=== PATIENT | female | born 1990 | race Caucasian/White ===

== ENCOUNTER 2018-04-11 20:12 | Emergency (ER) | payer MEDICAID ==
[~2018-04-11] VITALS: Ht 162.6 cm; Wt 63.6 kg
[~2018-04-11 20:12] MED LIST: NITR100C6 PO
[2018-04-11] MEDS ORDERED: ketorolac trometh inj. 60 MG/2 ML VIAL IM ONE (20:20)
[2018-04-11 20:27] VITALS: BP 133/74
== END 2018-04-11 20:56 | disposition home or self-care (01) ==
LOC: ER 20:13
DX: O90.89 Other complications of the puerperium, not elsewhere classified (principal); R10.30 Lower abdominal pain, unspecified; J45.909 Unspecified asthma, uncomplicated; F11.90 Opioid use, unspecified, uncomplicated; Z79.899 Other long term (current) drug therapy; Z59.0 Homelessness
CPT/HCPCS: 96372; 99283; J1885

== ENCOUNTER 2018-06-25 19:37 | Emergency (ER) | payer MEDICAID ==
[~2018-06-25] VITALS: Ht 160 cm; Wt 68.5 kg
[2018-06-25 20:12] LABS: BASOPHILS % (AUTO) 0.7 % (0-1); EOSINOPHILS # (AUTO) 0.2 X10'3 (0-0.9); EOSINOPHILS % (AUTO) 3.3 % (0-6); HEMATOCRIT 37.6 % (35.0-45.0); HEMOGLOBIN 12.9 g/dl (12.0-16.0); LYMPHOCYTES # (AUTO) 3.2 X10'3 (1.1-4.8); LYMPHOCYTES % (AUTO) 48.7 % (21-51); MEAN CORPUSCULAR HEMOGLOBIN 30.7 PG (27.0-31.0); MEAN CORPUSCULAR HGB CONC 34.4 % (33.0-36.5); MEAN CORPUSCULAR VOLUME 89.3 FL (78-98); MEAN PLATELET VOLUME 6.7 FL (7.4-10.4); MONOCYTES # (AUTO) 0.6 X10'3 (0-0.9); MONOCYTES % (AUTO) 8.4 % (2-12); NEUTROPHILS # (AUTO) 2.6 X10'3 (1.8-7.7); NEUTROPHILS % (AUTO) 38.9 % (42-75); PLATELET COUNT 375 X10'3 (140-440); RED BLOOD COUNT 4.21 X10'6 (4.20-5.60); RED CELL DISTRIBUTION WIDTH 14.5 % (11.5-14.5); WHITE BLOOD COUNT 6.6 X10'3 (4.5-11.0)
[2018-06-25 20:18] LABS: URINE HCG NEGATIVE (NEG)
[2018-06-25 20:20] LABS: CLARITY,URINE SLIGHTLY CLOUDY (Clear); COLOR,URINE YELLOW (Yellow); GLUCOSE, URINE NEGATIVE (Neg); KETONES,URINE TRACE mg/dl (Neg); LEUKOCYTE ESTERASE ,URINE SMALL (Neg); NITRITES, URINE NEGATIVE (Neg); OCCULT BLOOD,URINE LARGE (Neg); PROTEIN,URINE NEGATIVE (Neg); UROBILINOGEN,URINE 0.2 E.U/dL (0.2-1.0)
[2018-06-25 20:24] LABS: ALANINE AMINOTRANSFERASE 115 U/L (12-78); ALBUMIN 3.7 G/DL (3.4-5.0); ALKALINE PHOSPHATASE 144 IU/L (46-116); ANION GAP 9 (8-16); ASPARTATE AMINO TRANSFERASE 60 U/L (10-37); BILIRUBIN,TOTAL 0.3 MG/DL (0.1-1.0); BLOOD UREA NITROGEN 14 MG/DL (7-18); BUN/CREATININE RATIO 19.4 (6.6-38.0); CALCIUM 8.7 MG/DL (8.5-10.1); CHLORIDE 103 MMOL/L (99-107); CREATININE 0.72 MG/DL (0.40-0.90); GLUCOSE 98 MG/DL (70-104); POTASSIUM 3.6 MMOL/L (3.5-5.1); SODIUM 141 MMOL/L (135-145); TOTAL CARBON DIOXIDE 28.7 MMOL/L (24-32); TOTAL PROTEIN 7.3 G/DL (6.4-8.2); eGFR > 90 ML/MIN
[2018-06-25 20:31] LABS: UA COLLECTION TYPE CLN CATCH MIDSTREAM
[2018-06-25 20:39] LABS: BACTERIA,URINE FEW /HPF (Neg); RBC,URINE 20-50 /HPF (0-2); SQUAMOUS EPITHELIAL CELL,UR MODERATE /LPF (FEW)
[2018-06-25 20:40] LABS: MUCUS STRANDS FEW /LPF (Neg); TRANSITIONAL EPI CELLS,URINE FEW /HPF
[2018-06-25] MEDS ORDERED: CIPR-259 PO (21:53)
[2018-06-25] MEDS ORDERED: IBUP-1986 PO (21:53)
[2018-06-25 22:01] VITALS: BP 134/88
== END 2018-06-25 22:03 | disposition home or self-care (01) ==
LOC: ER 19:38
DX: N39.0 Urinary tract infection, site not specified (principal); J45.909 Unspecified asthma, uncomplicated; F17.200 Nicotine dependence, unspecified, uncomplicated; F11.90 Opioid use, unspecified, uncomplicated; Z59.0 Homelessness; Z98.890 Other specified postprocedural states; Z79.2 Long term (current) use of antibiotics; Z79.899 Other long term (current) drug therapy
CPT/HCPCS: 36415; 74176; 80053; 81001; 81025; 85025; 85610; 87088; 99285

== ENCOUNTER 2018-09-13 21:09 | Emergency (ER) | payer MEDICAID ==
[~2018-09-13] VITALS: Ht 160 cm; Wt 75.0 kg
[~2018-09-13 21:09] MED LIST changes: +IBUP-1986 PO
[2018-09-13 21:20] VITALS: BP 116/72
[2018-09-13] MEDS ORDERED: HYDR-3965 PO (22:50)
[2018-09-13] MEDS ORDERED: ONDA4TAB9 PO (22:50)
[2018-09-13] MEDS ORDERED: AMOX500C2 PO (22:50)
[2018-09-13] MEDS ORDERED: ibuprofen tablet 400 MG TABLET PO ONE (23:00)
== END 2018-09-13 23:19 | disposition home or self-care (01) ==
LOC: ER 21:10
DX: K04.7 Periapical abscess without sinus (principal); J45.909 Unspecified asthma, uncomplicated; Z98.890 Other specified postprocedural states; F11.90 Opioid use, unspecified, uncomplicated; Z59.0 Homelessness; Z79.899 Other long term (current) drug therapy
CPT/HCPCS: 99283

== ENCOUNTER 2019-01-24 21:09 | Emergency (ER) | payer OTHER, MEDICAID ==
[~2019-01-24] VITALS: Ht 152.4 cm; Wt 74.0 kg
[~2019-01-24 21:09] MED LIST changes: +ONDA4TAB6 PO
[2019-01-24 21:33] VITALS: BP 132/84
[2019-01-24] MEDS ORDERED: cyclobenzaprine 10mg tablet PO ONE (23:35)
[2019-01-24] MEDS ORDERED: ketorolac trometh inj. 60 MG/2 ML VIAL IM ONE (23:35)
[2019-01-24] MEDS ORDERED: HYDROcodone/acetaminophen 5mg/325mg tablet PO ONE (23:35)
[2019-01-24] MEDS ORDERED: CYCL-1 PO (23:36)
[2019-01-24] MEDS ORDERED: ACET-3067 PO (23:36)
== END 2019-01-24 23:57 | disposition home or self-care (01) ==
LOC: ER 21:10
DX: S13.4XXA Sprain of ligaments of cervical spine, initial encounter (principal); J45.909 Unspecified asthma, uncomplicated; F11.90 Opioid use, unspecified, uncomplicated; Z79.899 Other long term (current) drug therapy; Z59.0 Homelessness; V89.2XXA Person injured in unspecified motor-vehicle accident, traffic, initial encounter; Y93.89 Activity, other specified; Y92.488 Other paved roadways as the place of occurrence of the external cause; Y99.8 Other external cause status
CPT/HCPCS: 96372; 99283; J1885

== ENCOUNTER 2019-06-08 09:52 | Emergency (ER) | payer MEDICAID ==
[~2019-06-08] VITALS: Ht 162.6 cm; Wt 57.0 kg
[~2019-06-08 09:52] MED LIST changes: +CYCL-1 PO
[2019-06-08 09:57] VITALS: BP 109/84
[2019-06-08 10:30] LABS: CLARITY,URINE CLOUDY (Clear); COLOR,URINE YELLOW (Yellow); GLUCOSE, URINE NEGATIVE (Neg); KETONES,URINE TRACE mg/dl (Neg); LEUKOCYTE ESTERASE ,URINE SMALL (Neg); NITRITES, URINE POSITIVE (Neg); OCCULT BLOOD,URINE NEGATIVE (Neg); PH,URINE 6.5 (4.8-8.0); PROTEIN,URINE TRACE mg/dl (Neg)
[2019-06-08 10:36] LABS: URINE HCG NEGATIVE (NEG)
[2019-06-08 10:39] LABS: UA COLLECTION TYPE CLN CATCH MIDSTREAM
[2019-06-08] MEDS ORDERED: CEPH500C5 PO (10:44)
[2019-06-08 10:46] LABS: SQUAMOUS EPITHELIAL CELL,UR MANY /LPF (FEW)
[2019-06-08] MEDS ORDERED: HYDR-3686 PO (10:48)
[2019-06-08 10:49] LABS: MUCUS STRANDS MANY /LPF (Neg)
[2019-06-08 10:50] LABS: CAL OXALATE CRYSTALS 3+ /HPF (NEGATIVE)
[2019-06-08 10:51] LABS: WBC,URINE 30-50 /HPF (0-4)
[2019-06-08 10:52] LABS: BACTERIA,URINE 1+ /HPF (Neg)
[2019-06-08 10:53] LABS: HYALINE CASTS 0-3 /LPF (NEGATIVE)
[2019-06-08 11:02] LABS: TRANSITIONAL EPI CELLS,URINE FEW /HPF
== END 2019-06-08 10:59 | disposition home or self-care (01) ==
LOC: ER 09:52
DX: N39.0 Urinary tract infection, site not specified (principal); F19.10 Other psychoactive substance abuse, uncomplicated; F41.9 Anxiety disorder, unspecified; J45.909 Unspecified asthma, uncomplicated; F17.200 Nicotine dependence, unspecified, uncomplicated; F15.90 Other stimulant use, unspecified, uncomplicated; F11.90 Opioid use, unspecified, uncomplicated; F10.99 Alcohol use, unspecified with unspecified alcohol-induced disorder; Z98.890 Other specified postprocedural states; Z56.0 Unemployment, unspecified; Z79.899 Other long term (current) drug therapy; Y90.9 Presence of alcohol in blood, level not specified
CPT/HCPCS: 81001; 81025; 99283

== ENCOUNTER 2019-06-29 12:45 | Emergency (ER) | payer MEDICAID ==
[~2019-06-29] VITALS: Ht 160 cm; Wt 54.0 kg
[2019-06-29 13:24] VITALS: BP 123/98
[2019-06-29 14:02] LABS: CLARITY,URINE CLOUDY (Clear); COLOR,URINE YELLOW (Yellow); GLUCOSE, URINE NEGATIVE (Neg); KETONES,URINE NEGATIVE (Neg); LEUKOCYTE ESTERASE ,URINE SMALL (Neg); NITRITES, URINE POSITIVE (Neg); OCCULT BLOOD,URINE NEGATIVE (Neg); PH,URINE 6.5 (4.8-8.0); PROTEIN,URINE NEGATIVE (Neg); UROBILINOGEN,URINE 0.2 E.U/dL (0.2-1.0)
[2019-06-29 14:03] LABS: URINE HCG NEGATIVE (NEG)
[2019-06-29 14:05] LABS: UA COLLECTION TYPE CLN CATCH MIDSTREAM
[2019-06-29 14:09] LABS: SQUAMOUS EPITHELIAL CELL,UR MANY /LPF (FEW)
[2019-06-29 14:11] LABS: BACTERIA,URINE 3+ /HPF (Neg)
[2019-06-29 14:12] LABS: RBC,URINE 0-2 /HPF (0-2)
[2019-06-29] MEDS ORDERED: PENI-88 PO (14:55)
[2019-06-29] MEDS ORDERED: IBUP-1986 PO (14:55)
== END 2019-06-29 15:20 | disposition home or self-care (01) ==
LOC: ER 12:45
DX: S80.211A Abrasion, right knee, initial encounter (principal); S90.511A Abrasion, right ankle, initial encounter; S90.812A Abrasion, left foot, initial encounter; N39.0 Urinary tract infection, site not specified; A64 Unspecified sexually transmitted disease; K02.9 Dental caries, unspecified; J45.909 Unspecified asthma, uncomplicated; F15.90 Other stimulant use, unspecified, uncomplicated; F11.90 Opioid use, unspecified, uncomplicated; Z59.0 Homelessness; Z98.890 Other specified postprocedural states; Z79.899 Other long term (current) drug therapy; V49.88XA Car occupant (driver) (passenger) injured in other specified transport accidents, initial encounter; Y93.89 Activity, other specified; Y92.413 State road as the place of occurrence of the external cause; Y99.9 Unspecified external cause status
CPT/HCPCS: 36415; 81001; 81025; 87491; 99283

== ENCOUNTER 2020-02-04 21:02 | Emergency (ER) | payer MEDICAID, OTHER ==
[~2020-02-04] VITALS: Ht 162.6 cm; Wt 59.6 kg
[2020-02-04 21:07] VITALS: BP 138/97
== END 2020-02-04 21:41 | disposition home or self-care (01) ==
LOC: ER 21:02
DX: F15.10 Other stimulant abuse, uncomplicated (principal); F42.4 Excoriation (skin-picking) disorder; J45.909 Unspecified asthma, uncomplicated; F11.90 Opioid use, unspecified, uncomplicated; F41.9 Anxiety disorder, unspecified; Z87.440 Personal history of urinary (tract) infections; Z98.890 Other specified postprocedural states; Z72.89 Other problems related to lifestyle; Z59.0 Homelessness; Z79.899 Other long term (current) drug therapy
CPT/HCPCS: 99281

== ENCOUNTER 2020-07-03 11:22 | Emergency (ER) | payer MEDICAID ==
[~2020-07-03] VITALS: Ht 160 cm; Wt 60.0 kg
[2020-07-03] MEDS ORDERED: haloperidol lactate 5mg/ml inj IM ONE (12:00)
[2020-07-03] MEDS ORDERED: LORazepam 2 mg/ml vial IM ONE (12:00)
[2020-07-03] MEDS ORDERED: diphenhydrAMINE 50 mg/ml inj IM ONE (12:00)
[2020-07-03 12:14] LABS: BASOPHILS # (AUTO) 0.1 X10'3 (0-0.2); EOSINOPHILS % (AUTO) 0.6 % (0-6); HEMATOCRIT 43.8 % (35.0-45.0); LYMPHOCYTES % (AUTO) 39.1 % (21-51); MEAN CORPUSCULAR HEMOGLOBIN 31.7 PG (27.0-31.0); MEAN CORPUSCULAR HGB CONC 34.3 g/dL (33.0-36.5); MEAN CORPUSCULAR VOLUME 92.5 FL (78-98); MEAN PLATELET VOLUME 7.2 FL (7.4-10.4); MONOCYTES # (AUTO) 0.6 X10'3 (0-0.9); MONOCYTES % (AUTO) 8.3 % (2-12); PLATELET COUNT 538 X10'3 (140-440); RED BLOOD COUNT 4.74 X10'6 (4.20-5.60); RED CELL DISTRIBUTION WIDTH 15.5 % (11.5-14.5); WHITE BLOOD COUNT 7.8 X10'3 (4.5-11.0)
[2020-07-03 12:28] LABS: ALANINE AMINOTRANSFERASE 76 U/L (12-78); ALBUMIN 4.2 G/DL (3.4-5.0); ALBUMIN/GLOBULIN RATIO 1.1 (1.1-1.5); ALKALINE PHOSPHATASE 96 IU/L (46-116); ANION GAP 4 (8-16); ASPARTATE AMINO TRANSFERASE 52 U/L (10-37); BILIRUBIN,TOTAL 0.7 MG/DL (0.1-1.0); BLOOD UREA NITROGEN 22 MG/DL (7-18); BUN/CREATININE RATIO 18.5 (6.6-38.0); CALCIUM 9.4 MG/DL (8.5-10.1); CHLORIDE 103 MMOL/L (99-107); CREATININE 1.19 MG/DL (0.40-0.90); GLUCOSE 100 MG/DL (70-104); POTASSIUM 3.7 MMOL/L (3.5-5.1); SODIUM 138 MMOL/L (135-145); TOTAL CARBON DIOXIDE 30.8 MMOL/L (24-32); TOTAL PROTEIN 7.9 G/DL (6.4-8.2); eGFR 54 ML/MIN
[2020-07-03 12:36] LABS: ETHANOL < 0.010 GM/DL (0.0-0.010)
--- NOTE | 2020-07-03 15:30 | NUR ---
pt came over from main er 15 to overflow 26. pt is sleeping. pt was given b52
--- NOTE | 2020-07-03 16:35 | NUR ---
pt is resting. no issues
--- NOTE | 2020-07-03 17:45 | NUR ---
pt is resting. no issues
--- NOTE | 2020-07-03 19:08 | NUR ---
PT CONTINUES TO REST WITH NO SIGNS OF DISTRESS OR DISCOMFORT. PT WAS COOPERATIVE WITH TECH WHILE HE OBTAINED ANOTHER O2 READING. WILL CONTINUE TO MONITOR .
--- NOTE | 2020-07-03 20:26 | NUR ---
pt cont to rest. no signs of distress or discomfort noted. will cont to monitor.
--- NOTE | 2020-07-03 21:05 | NUR ---
pt continues to sleep with regular breathing rate. no signs of distress or discomfort. will cont to monitor.
--- NOTE | 2020-07-03 23:35 | NUR ---
pt continues to sleep with regular breathing rate. will ask pt for UA once awake and up.
--- NOTE | 2020-07-04 04:00 | NUR ---
Patient awoke asking for food. she used the bathroom and layed back down
--- NOTE | 2020-07-04 06:00 | NUR ---
pt is awake. gave ua
[2020-07-04 06:43] LABS: CLARITY,URINE CLOUDY (Clear); COLOR,URINE YELLOW (Yellow); GLUCOSE, URINE NEGATIVE (Neg); KETONES,URINE NEGATIVE (Neg); LEUKOCYTE ESTERASE ,URINE MODERATE (Neg); NITRITES, URINE POSITIVE (Neg); OCCULT BLOOD,URINE TRACE-INTACT (Neg); PROTEIN,URINE NEGATIVE (Neg)
[2020-07-04 06:44] LABS: UA COLLECTION TYPE CLN CATCH MIDSTREAM
[2020-07-04 06:45] LABS: URINE HCG NEGATIVE (NEG)
[2020-07-04 06:57] LABS: URINE AMPHETAMINE SCREEN POSITIVE (Neg); URINE BARBITUATE SCREEN NEGATIVE (Neg); URINE BENZODIAZEPINES SCREEN NEGATIVE (Neg); URINE CANNABINOID SCREEN POSITIVE (Neg); URINE COCAINE SCREEN NEGATIVE (Neg); URINE METHADONE SCREEN NEGATIVE (Neg); URINE OPIATE SCREEN NEGATIVE (Neg); URINE PHENCYCLIDINE SCREEN NEGATIVE (Neg)
--- NOTE | 2020-07-04 07:00 | NUR ---
pt is awake. alert and orientated
[2020-07-04 07:10] LABS: RBC,URINE 0-2 /HPF (0-2); WBC,URINE TNTC /HPF (0-4)
[2020-07-04 07:11] LABS: BACTERIA,URINE 4+ /HPF (Neg); SQUAMOUS EPITHELIAL CELL,UR FEW /LPF (FEW)
[2020-07-04] MEDS ORDERED: CEPH-572 PO (07:59)
--- NOTE | 2020-07-04 08:00 | NUR ---
pt is asking when she can leave. no concerns at this time
[2020-07-04] MEDS: cephalexin 500mg capsule PO SCH ×3 (08:15→20:24)
--- NOTE | 2020-07-04 09:00 | NUR ---
Sangeeta posadas in [place] - 07/04/20 at 1148 by GAGAN pt is going to be going back to the [facility]. pt will first go to [facility]
--- NOTE | 2020-07-04 09:00 | NUR ---
information officer called. parole is attempting to get the patient into a drug rehab center or the mission. parole officers from [facility] will come chart picker the patient tomorrow at 0900
--- NOTE | 2020-07-04 10:00 | NUR ---
pt is sleeping. no issues at this time
--- NOTE | 2020-07-04 10:00 | NUR ---
Sangeeta posadas in [facility] - 07/04/20 at 1148 by GAGAN awaiting transportation to [facility]
--- NOTE | 2020-07-04 11:00 | NUR ---
pt is sleeping no issues at this time
--- NOTE | 2020-07-04 12:00 | NUR ---
pt is sleeping no concerns at this time
--- NOTE | 2020-07-04 13:36 | NUR ---
Patient up to nursing station, requesting socks, ativan which she states she takes daily and a nicotine patch/gum. Patient states she drinks a lot of alcohol and uses heroin which the ativan would help with withdrawls. Will speak with MD, patient within sight of staff at all times, all safety measures in place.
[2020-07-04] MEDS ORDERED: LORazepam 1 MG tablet PO ONE (13:45)
[2020-07-04] MEDS ORDERED: nicotine 7mg patch - 24hr TD ONE (13:48)
--- NOTE | 2020-07-04 14:00 | NUR ---
pt is sleeping no concerns at this time
--- NOTE | 2020-07-04 15:00 | NUR ---
pt is sleeping no concerns at this time
--- NOTE | 2020-07-04 16:00 | NUR ---
pt is sleeping no concerns at this time
--- NOTE | 2020-07-04 19:00 | NUR ---
Patient lying in her bed, refused dinner tray. Appears to be resting comfortably. No apparent s/s of distress noted
[2020-07-04] MEDS: lactobacillus rhamnosus 10,000 MMU CELLS/CAPSULE PO SCH ×2 (20:00→20:24)
--- NOTE | 2020-07-04 20:00 | NUR ---
Patient appears to be still sleeping. No apparent s/s of distress noted
--- NOTE | 2020-07-04 20:40 | NUR ---
Attempted x2 to get patient to wake up enough to take her medications. Patient woke up enough to respond to RN then went back to sleep refusing medicaion.
--- NOTE | 2020-07-04 21:26 | NUR ---
Patient lying in her bed and appears to be resting comfortably. No apparent s/s of distress noted
--- NOTE | 2020-07-04 22:44 | NUR ---
Patient appears to be resting comfortably. No apparent s/s of distress noted
--- NOTE | 2020-07-04 23:20 | NUR ---
Patient appears to be resting comfortably. No apparent s/s of distress noted
--- NOTE | 2020-07-05 03:39 | NUR ---
patient sleeping undisturbed
[2020-07-05 05:47] VITALS: BP 115/75
--- NOTE | 2020-07-05 06:24 | NUR ---
Patient sleeping on right side. No distress observed. Continue to monitor.
--- NOTE | 2020-07-05 07:30 | NUR ---
Patient awake and demanding. Patient wants her Ativan. RN could not find any External Meds for patient. RN to call [facility] when they open at 0800. Patient received coffee and yogurt at this time. Continue to monitor.
--- NOTE | 2020-07-05 07:45 | NUR ---
Patient walked up to the doors that lead to Security. RN advised patient that she is not allowed to go back there. "I'm just getting hand blood bank technologist." RN advised patient again that she is not allowed to past the dividers. Continue to monitor.
[2020-07-05] MEDS ORDERED: ibuprofen tablet 400 MG TABLET PO ONE (07:55)
[2020-07-05] MEDS: cephalexin 500mg capsule PO SCH (08:03)
[2020-07-05] MEDS: lactobacillus rhamnosus 10,000 MMU CELLS/CAPSULE PO SCH (08:03)
--- NOTE | 2020-07-05 08:10 | NUR ---
RN spoke to Jean Melgoza [facility] [employer] Game Warden stated last order of Ativan was 04/13/20, 10 tablets. No recent medication refills. RN advised patient.
--- NOTE | 2020-07-05 08:37 | NUR ---
Patient got up and walked out into Security Hallway. RN called Security on Radio. Patient walked back and patient in her room. Patient asks why can't she just leave. Advised patient she is on a hold. Security at side. Continue to monitor.
--- NOTE | 2020-07-05 09:15 | NUR ---
Patient pendion PO from [facility] in [place] to fern picker patient and take her to rehab.
== END 2020-07-05 11:15 | disposition home or self-care (01) ==
LOC: ER 11:23
DX: F23 Brief psychotic disorder (principal); J45.909 Unspecified asthma, uncomplicated; F41.9 Anxiety disorder, unspecified; F15.90 Other stimulant use, unspecified, uncomplicated; F11.90 Opioid use, unspecified, uncomplicated; Z72.89 Other problems related to lifestyle; Z98.890 Other specified postprocedural states; Z59.0 Homelessness; Z79.899 Other long term (current) drug therapy
CPT/HCPCS: 36415; 80053; 80305; 80320; 81001; 81025; 84443; 85025; 96372; 99285; J1200; J1630; J2060

== ENCOUNTER 2021-04-06 02:10 | Emergency (ER) | payer MEDICAID ==
[~2021-04-06] VITALS: Ht 162.6 cm; Wt 72.0 kg
[2021-04-06 02:38] VITALS: BP 120/72
--- NOTE | 2021-04-06 02:53 | NUR ---
PT WAS TOLD NOT TO LEAVE THE WAITING ROOM BUT SHE WALKING DIRECTLY OUT FROM THE LOBBY AND WAS SEEN ON [place] [address].
--- NOTE | 2021-04-06 03:57 | NUR ---
Patient ambulatory to bathroom with steady gait- to provide clean catch urine sample.
[2021-04-06 04:13] LABS: CLARITY,URINE SLIGHTLY CLOUDY (Clear); GLUCOSE, URINE NEGATIVE (Neg); KETONES,URINE TRACE mg/dl (Neg); LEUKOCYTE ESTERASE ,URINE NEGATIVE (Neg); NITRITES, URINE NEGATIVE (Neg); OCCULT BLOOD,URINE MODERATE (Neg); PROTEIN,URINE 30 mg/dl (Neg)
[2021-04-06 04:14] LABS: URINE HCG NEGATIVE (NEG)
[2021-04-06 04:18] LABS: COLOR,URINE DARK YELLOW (Yellow); UA COLLECTION TYPE CLN CATCH MIDSTREAM
[2021-04-06 04:25] LABS: MUCUS STRANDS MODERATE /LPF (Neg); SQUAMOUS EPITHELIAL CELL,UR MANY /LPF (FEW)
[2021-04-06 04:26] LABS: BACTERIA,URINE 3+ /HPF (Neg)
[2021-04-06 04:28] LABS: HYALINE CASTS 0-3 /LPF (NEGATIVE)
[2021-04-06] MEDS ORDERED: MUPI22OI30 TP (04:36)
== END 2021-04-06 04:46 | disposition home or self-care (01) ==
LOC: ER 02:11
DX: F42.4 Excoriation (skin-picking) disorder (principal); L01.00 Impetigo, unspecified; R11.2 Nausea with vomiting, unspecified; J45.909 Unspecified asthma, uncomplicated; F15.90 Other stimulant use, unspecified, uncomplicated; F11.90 Opioid use, unspecified, uncomplicated; Z59.0 Homelessness; Z98.891 History of uterine scar from previous surgery; Z87.440 Personal history of urinary (tract) infections; Z88.8 Allergy status to other drugs, medicaments and biological substances; Z79.899 Other long term (current) drug therapy; Z72.0 Tobacco use
CPT/HCPCS: 81001; 81025; 99283

== ENCOUNTER 2025-06-13 15:08 | Emergency (ER) | payer MEDICAID ==
[~2025-06-13] VITALS: Ht 162.6 cm; Wt 64.3 kg
[~2025-06-13 15:08] MED LIST changes: -CYCL-1 PO; +HYDR-3686 PO; -IBUP-1986 PO; -NITR100C6 PO; +NO HOME MEDS; -ONDA4TAB6 PO
[2025-06-13 15:29] VITALS: BP 127/84; PULSE 82; RESP 16; TEMP 97.5; O2SAT 99
--- NOTE | 2025-06-13 16:19 | Physician Documentation ---
HPI ~ General Chief Complaint: Medication Request Stated Complaint: MED REQUEST AND R FOOT PAIN Time Seen by MD: 15:55 Primary Medical Doctor: UNKNOWN History of Present Illness HPI Comments Patient is seen today with complaints of pain in the plantar aspect of the right foot as well as wanting a refill of her insomnia medication trazodone 50 mg at night. Patient states she has an appointment upcoming with her psychiatrist and just needs a short fill of trazodone. Patient has no other concern or complaint at this time. Patient states she feels like she stepped on something a while ago she still has pain in the plantar aspect of her right foot in the ball of her right foot. Medication Reconciliation Allergies: Coded Allergies: divalproex sodium (Unverified Allergy, Unknown, "seizure", 06/13/25) Scheduled Hydroxyzine Hcl (Atarax), 1 TAB PO Q8H Miscellaneous Medications Home Med List (No Home Medications), (Reported) Past Medical History Past Medical History: Asthma, UTI, Anxiety Past Surgical History: Alcohol Use: Sober Drug Use: methamphetamine, heroin Lives In: Homeless Review of Systems Constitutional: Denies: chills, fever, weakness Eyes: Denies: pain, blurred vision ENT: Denies: ear pain, nose pain, throat pain, mouth pain Respiratory: Denies: cough, shortness of breath Cardiovascular: Denies: chest pain, palpitations Gastrointestinal: Denies: abdominal pain, nausea, vomiting Genitourinary: Denies: burning, dysuria Female Genitalia: Denies: vaginal discharge, pelvic pain Neurological: Denies: headache, dizziness Musculoskeletal: Denies: pain, swelling Integumentary: Denies: rash, lesions Allergic/Immunologic: Denies: hives, itching Hematologic/Lymphatic: Denies: no symptoms reported Psychiatric: Denies: depression, anxiety Physical Exam Physical Exam Vital Signs: Temperature: 97.5, Source: Temporal, Heart Rate: 82, Respiratory Rate: 16, BP: 127/84, Pulse Oximetry: 99, Weight: 64.300 Oxygen Flow Rate: 0 Physical Exam General: Awake and Alert, no acute distress. HEENT: Conjunctiva pink, Sclera clear, Mucus Membranes moist. Neck: Supple without masses and tenderness. Resp: Unlabored. Lungs clear to auscultation bilaterally. Heart: Regular Rate and rhythm, normal S1 and S2 without murmur, rub or gallop. Extremities: No cyanosis,clubbing or edema. Skin: Patient on exam on the plantar aspect of right foot does have skin lesion consistent with a corn. I do not appreciate any significant tenderness to palpation or surrounding erythema or induration or purulent drainage or sign of infection. Progress Results/Orders Results/Orders Vital Signs 06/13/25 15:29 Temp 97.5 Pulse 82 Resp 16 B/P (MAP) 127/84 Pulse Ox 99 O2 Flow Rate 0 Medical Decision Making Findings Patient is seen today with complaints of pain in the plantar aspect of the right foot as well as wanting a refill of her insomnia medication trazodone 50 mg at night. Patient states she has an appointment upcoming with her psychiatrist and just needs a short fill of trazodone. Patient has no other concern or complaint at this time. Patient states she feels like she stepped on something a while ago she still has pain in the plantar aspect of her right foot in the ball of her right foot. Patient will follow up with primary care and get referral to Podiatry for eval and treatment of corn of right foot. Patient was given prescription for trazodone 50 mg one tab by mouth at night and will follow up with her PCP or psychiatrist for further refills. Return to ED with any worsening, concerning or changing symptoms. Departure Disposition: 01 HOME / SELF CARE / HOMELESS Impression: Primary Impression: [place] of foot Additional Impression: Insomnia Qualified Codes: G47.00 - Insomnia, unspecified Condition: Stable Discharge Instructions: Corns and Calluses, Insomnia Additional Instructions: Patient will follow up with primary care and get referral to Podiatry for eval and treatment of corn of right foot. Patient was given prescription for trazodone 50 mg one tab by mouth at night and will follow up with her PCP or psychiatrist for further refills. Return to ED with any worsening, concerning or changing symptoms. Referrals: NO PRIMARY CARE PROVIDER (PCP) Prescriptions Trazodone HCl (Trazodone HCl) 50 Mg Tablet 1 TAB PO HS for 14 Days, #14 TAB 0 Refills Prov: MARGO RAE 06/13/25 Signature Scribe Signature: No scribe Attestation: No scribe MARGO RAE PAC Jun 13, 2025 16:19
[2025-06-13] MEDS ORDERED: TRAZ-251 PO (16:31)
== END 2025-06-13 16:50 | disposition home or self-care (01) ==
LOC: ER 15:09
DX: L84 Corns and callosities (principal); G47.00 Insomnia, unspecified; F41.9 Anxiety disorder, unspecified; J45.909 Unspecified asthma, uncomplicated; Z76.0 Encounter for issue of repeat prescription; F15.90 Other stimulant use, unspecified, uncomplicated; F11.90 Opioid use, unspecified, uncomplicated; Z59.00 Homelessness unspecified; Z98.890 Other specified postprocedural states; Z88.8 Allergy status to other drugs, medicaments and biological substances; Z87.440 Personal history of urinary (tract) infections; Z79.899 Other long term (current) drug therapy
CPT/HCPCS: 99281; 99282

== ENCOUNTER 2025-07-02 11:20 | Emergency (ER) | payer MEDICAID ==
[~2025-07-02] VITALS: Ht 162.6 cm; Wt 77.3 kg
[~2025-07-02 11:20] MED LIST changes: +TRAZ-251 PO
[2025-07-02 11:47] VITALS: TEMP 98.3
--- NOTE | 2025-07-02 13:23 | Physician Documentation ---
History of Present Illness ~ Chief Complaint: Arm Pain Stated Complaint: SWELLING IN HANDS Time Seen by MD: 12:33 Primary Medical Doctor: UNKNOWN HPI 34-year-old female presenting with arm pain and swelling. She tells me that over the past week she has had gradually worsening pain and swelling to both her arms, right worse than left. She reports especially in her right arm she has significant pain and swelling to the hand, wrist, and forearm. The left arm has mild pain and swelling to the hand and forearm. She denies any specific injury. She did inject IV fentanyl into her left AC region about a week ago. Otherwise she denies any recent substance use except for smoking meth. She does have a past history of IV fentanyl use. She says that over the past day or 2 she began having fevers and general malaise. No significant congestion or productive cough. No abdominal pain or vomiting. No other related symptoms. No history of similar. No history of cellulitis. Tetanus within 5 years: No Medication Reconciliation Allergies: Coded Allergies: divalproex sodium (Unverified Allergy, Unknown, "seizure", 07/02/25) Scheduled Hydroxyzine Hcl (Atarax), 1 TAB PO Q8H Sulfamethoxazole/Trimethoprim (Bactrim Ds Tablet), 1 TAB PO Q12H Trazodone HCl (Trazodone HCl), 1 TAB PO HS Scheduled PRN Oxycodone Hcl IR* (Oxycodone IR*), 1 TAB PO TID PRN PRN for pain Miscellaneous Medications Home Med List (No Home Medications), (Reported) Past Medical History Past Medical History: Asthma, UTI, Anxiety Past Surgical History: Alcohol Use: Sober Drug Use: methamphetamine, heroin Lives In: Homeless Review of Systems Constitutional: Reports: fever, malaise Musculoskeletal: Reports: pain, swelling, joint pain Physical Exam Vital Signs: Temperature: 98.3, Source: Temporal, Heart Rate: 84, Respiratory Rate: 18, BP: 128/98, Pulse Oximetry: 100, Weight: 77.270 Oxygen Flow Rate: 0 Physical Exam General: This is an uncomfortable appearing young female, family at bedside HEENT: Atraumatic, oropharynx is moist Heart: Regular rate and rhythm, no audible murmur, normal-appearing peripheral perfusion to both arms Lungs: Clear breath sounds bilateral, normal work of breathing, normal oxygen saturation on room air Extremities: Right upper extremity: The patient has swelling to the hand, wrist, and forearm with some mild erythema and diffuse tenderness especially over the hand, wrist, and distal forearm. Left upper extremity: The patient has mild swelling to the hand and forearm. Minimal tenderness to palpation of this region. There is a track brayan in the AC region Neuro: Alert and oriented Psychiatric: Calm and cooperative with exam Progress Results/Orders Results/Orders Orders - PURNIMA SWARTZ MD Culture Blood (07/02/25 13:15) Vl Venous (07/02/25 15:19) Oxycodone Immed Release Tablet (Oxy Ir T (07/02/25 16:35) Ceftriaxone/W3v-Xzbtrkbd 1gm (Rocephin 1 (07/02/25 16:35) Completed Orders - PURNIMA SWARTZ MD C-Reactive Protein (07/02/25 13:15) Cbc/Diff (07/02/25 13:15) CMP (07/02/25 13:15) ESR (07/02/25 13:15) LA (07/02/25 13:15) Ketorolac Trometh 15mg/Ml Vial (Toradol (07/02/25 13:20) Morphine 4mg/Ml Inj. (Morphine Inj.) (07/02/25 13:20) Ondansetron Inj. (Zofran 4mg/2ml Vial) (07/02/25 13:20) Vl Venous (07/02/25 15:19) Morphine 4mg/Ml Inj. (Morphine Inj.) (07/02/25 15:20) Sulfamethox/Trimetho. Ds Tab (Septra Ds (07/02/25 16:35) Medications Received in ER Medications (Trade) Dose Ordered Sig/Domo Route PRN Reason Start Time Stop Time Status Last Admin Dose Admin (Toradol injection) 15 mg ONCE ONCE IV 07/02/25 13:20 07/02/25 13:21 DC 07/02/25 13:32 15 MG (morphine inj.) 4 mg ONCE ONCE IV 07/02/25 13:20 07/02/25 13:21 DC 07/02/25 13:32 4 MG (Zofran 4mg/2ml vial) 4 mg ONCE ONCE IV 07/02/25 13:20 07/02/25 13:21 DC 07/02/25 13:32 4 MG (morphine inj.) 4 mg ONCE ONCE IV 07/02/25 15:20 07/02/25 15:27 DC 07/02/25 15:42 4 MG Vital Signs 07/02/25 07/02/25 07/02/25 11:47 12:49 15:44 Temp 98.3 Pulse 86 84 67 Resp 16 18 16 B/P (MAP) 138/97 128/98 (108) 136/92 (107) Pulse Ox 98 100 100 O2 Flow Rate 0 0 0 Laboratory Tests Test 07/02/25 13:33 White Blood Count 5.4 Red Blood Count 3.67 L Hemoglobin 10.9 L Hematocrit 32.1 L Mean Corpuscular Volume 87.4 Mean Corpuscular Hemoglobin 29.6 Mean Corpuscular Hemoglobin Concent 33.8 Red Cell Distribution Width 16.5 H Platelet Count 391 Mean Platelet Volume 6.7 L Neutrophils (%) (Auto) 50.8 Lymphocytes (%) (Auto) 35.7 Monocytes (%) (Auto) 9.3 Eosinophils (%) (Auto) 3.4 Basophils (%) (Auto) 0.8 Neutrophils # (Auto) 2.8 Lymphocytes # (Auto) 1.9 Monocytes # (Auto) 0.5 Eosinophils # (Auto) 0.2 Basophils # (Auto) 0.0 CBC Comment Erythrocyte Sedimentation Rate 11 Sodium Level 140 Potassium Level 3.3 L Chloride Level 106 Carbon Dioxide Level 28.3 Anion Gap 6 L Blood Urea Nitrogen 12 Creatinine 0.67 Estimated GFR/1.73 m2 > 90 BUN/Creatinine Ratio 17.9 Glucose Level 128 H Lactic Acid Level 1.1 Calcium Level 8.5 Total Bilirubin 0.3 Aspartate Amino Transf (AST/SGOT) 40 H Alanine Aminotransferase (ALT/SGPT) 35 Alkaline Phosphatase 65 C-Reactive Protein 1.91 H Total Protein 6.7 Albumin 3.2 L Globulin 3.5 Albumin/Globulin Ratio 0.9 L Chemistry Comments Microbiology Date/Time Source Procedure Growth Status 07/02/25 13:39 Blood Arm Right Blood Culture - Preliminary NEGATIVE (LESS THAN 24 HOURS) Resulted EKG/XRAY/CT/US/VASC/MRI Vascular : Impression The DVT ultrasound was negative for right arm DVT or other acute abnormality Medical Decision Making Additional Comment Differential includes cellulitis, bacteremia, sprain, IV drug use, septic arthritis Assessment The patient presents with bilateral arm pain, primarily worse in the right hand and arm. On exam she does have swelling and mild redness, concerning for infection. Her exam is not consistent with septic arthritis. No significant leukocytosis. No significant elevation of her inflammatory markers. Ultrasound does not show a DVT or other acute abnormality. Overall, this seems most likely to represent cellulitis. It could be related to IV drug use. Blood cultures are pending. She was given IV antibiotics and will be discharged on Bactrim. She was given a small course of opiate pain medication given her significant pain and this seems reasonable in an attempt to treat her pain instead of needing to use narcotics like IV fentanyl again. Return precautions given. Departure Time of Disposition: 16:35 Disposition: HOME / SELF CARE / HOMELESS Impression: Primary Impression: Right arm cellulitis Condition: Improved Discharge Instructions: Cellulitis, Adult Referrals: NO PRIMARY CARE PROVIDER (PCP) Prescriptions Oxycodone Hcl IR* (Oxycodone IR*) 5 Mg Tablet 1 TAB PO TID PRN PRN for pain for 3 Days, #9 TAB Prov: PURNIMA SWARTZ MD 07/02/25 Sulfamethoxazole/Trimethoprim (Bactrim Ds Tablet) 800 Mg-160 Mg Tablet 1 TAB PO Q12H for 10 Days, #20 TAB Prov: PURNIMA SWARTZ MD 07/02/25 Education Educated: Patient Educated regarding: diagnosis, treatment, need for follow up Signature Scribe Signature: tylor Attestation: PURNIMA Levin MD Jul 02, 2025 13:23
[2025-07-02] MEDS: ketorolac trometh 15mg/ml vial 15 MG/ML ML IV ONE (13:32)
[2025-07-02] MEDS: ondansetron/PF 4mg/2ml inj IV ONE (13:32)
[2025-07-02] MEDS: morphine 4 MG/ML inj SYRINge IV ONE ×2 (13:32→15:42)
[2025-07-02 13:58] LABS: MEAN PLATELET VOLUME 6.7 FL (7.4-10.4); RED CELL DISTRIBUTION WIDTH 16.5 % (11.5-14.5)
[2025-07-02 14:14] LABS: CREATININE 0.67 MG/DL (0.40-0.90); TOTAL CARBON DIOXIDE 28.3 MMOL/L (24-32); eCRCL 103 ML/MIN; eGFR > 90 ML/MIN
[2025-07-02] MEDS ORDERED: OXYC-658 PO (16:37)
[2025-07-02] MEDS ORDERED: SULF1TAB49 PO (16:37)
--- NOTE | 2025-07-02 16:45 | VASCULAR REPORT ---
Procedure: [facility] Study Date and Requested Time: 07/02/2025 03:53 PM History: Pain/ swelling Comparison: None Technique: Multiple high resolution grayscale images with and without compression obtained of the right upper extremity veins, including the internal jugular, subclavian, axillary, brachial, radial, and ulnar veins. Augmentation performed as indicated. Color and spectral doppler flow images obtained as indicated. Findings: No visible intraluminal venous thrombus. No evidence of incompressibility or abnormal color or spectral Doppler flow visualized in the right upper extremity veins including the internal jugular, subclavian, axillary, brachial, radial, and ulnar veins. The left subclavian vein is patent. Impression: No sonographic evidence of right upper extremity deep venous thrombosis.
[2025-07-02] MEDS: CefTRIAXone/D5W-Rocephin 1gm 50 ML IV ONE (16:52)
[2025-07-02] MEDS: sulfamethoxazole/trimethoprim DS (800/160mg) tablet PO ONE (16:52)
[2025-07-02] MEDS: oxyCODONE IR 5mg (immed. release) tablet PO ONE (16:53)
[2025-07-02 17:25] VITALS: BP 130/85; PULSE 74; RESP 18; O2SAT 100
== END 2025-07-02 17:27 | disposition home or self-care (01) ==
LOC: ER 11:21
DX: L03.113 Cellulitis of right upper limb (principal); J45.909 Unspecified asthma, uncomplicated; F15.90 Other stimulant use, unspecified, uncomplicated; F11.90 Opioid use, unspecified, uncomplicated; Y90.9 Presence of alcohol in blood, level not specified
CPT/HCPCS: 36415; 80053; 83605; 85025; 85651; 86140; 87040; 93971; 96365; 96375; 96376; 99285; J0696; J1885; J2270; J2405

== ENCOUNTER 2025-09-05 18:17 | Emergency (ER) | payer MEDICAID ==
--- NOTE | 2025-09-05 18:39 | Physician Documentation ---
History of Present Illness ~ Chief Complaint: Mental Health Eval Stated Complaint: 5150 Time Seen by MD: 18:35 Primary Medical Doctor: UNKNOWN HPI Patient brought in a written 5150. Patient was found acting erratically and the streets claiming that wolves were attacking her and she was bitten all over the place by wolves. Patient that has not helpful history however she does state that she was bitten by a dog on her right ankle. She knows nothing of the dog Medication Reconciliation Allergies: Coded Allergies: divalproex sodium (Unverified Allergy, Unknown, "seizure", 07/02/25) Scheduled Hydroxyzine Hcl (Atarax), 1 TAB PO Q8H Trazodone HCl (Trazodone HCl), 1 TAB PO HS Miscellaneous Medications Home Med List (No Home Medications), (Reported) Past Medical History Past Medical History: Asthma, UTI, Anxiety Past Surgical History: Alcohol Use: Sober Drug Use: methamphetamine, heroin Lives In: Homeless Physical Exam Physical Exam General: Patient is awake, alert, oriented x4 in no acute distress and well appearing.~ Head: Normocephalic and atraumatic. Eyes: Conjunctival normal. EOMI. PERRL. ENT: Mucous membranes moist. Neck: Supple, trachea is midline. Chest: Clear to auscultation bilaterally without rales, rhonchi, or wheezes. There is no accessory muscle use or retractions. Cardiac: RRR without murmurs, gallops, or rubs. Extremities: 2 cm full-thickness laceration to lateral aspect of her right ankle. Diffuse swelling to ankle. Progress Results/Orders Results/Orders Orders - WILFREDO DOSS MD Urinalysis (09/05/25 18:36) Hcg, Ur Ql (09/05/25 18:36) Drug Screen, Urine (09/05/25 18:36) Med Rec (09/05/25 18:36) Close Observation Level (09/05/25 18:36) Covid19 Binax Poc Result Entry (09/05/25 18:36) Substance Use Navigator (09/05/25 18:36) Regular Diet (09/06/25 Breakfast) Tib/Fib (09/05/25 20:12) Amox Tr/Potassium Clavulanate (Augmentin (09/05/25 20:00) Dressing Orders (09/05/25 19:55) Wound Care Orders (09/05/25 19:55) Completed Orders - WILFREDO DOSS MD Cbc/Diff (09/05/25 18:36) Ethanol (09/05/25 18:36) TSH (09/05/25 18:36) BMP (09/05/25 18:36) Haloperidol Lact. (Haldol) (09/05/25 19:20) Diphenhydramine Inj (Benadryl Inj.) (09/05/25 19:20) Diazepam Inj (Valium Inj) (09/05/25 19:20) Tib/Fib (09/05/25 20:12) Bacitracin Ointment (Bacitracin Ointment (09/05/25 19:55) Ondansetron Disint. Tablet (Zofran Odt T (09/05/25 20:00) Medications Received in ER Medications (Trade) Dose Ordered Sig/Domo Route PRN Reason Start Time Stop Time Status Last Admin Dose Admin (Haldol) 10 mg ONCE ONCE IM 09/05/25 19:20 09/05/25 19:24 DC 09/05/25 21:54 5 MG (Benadryl inj.) 50 mg ONCE ONCE IM 09/05/25 19:20 09/05/25 19:21 DC 09/05/25 21:53 50 MG (Valium inj) 5 mg ONCE ONCE IM 09/05/25 19:20 09/05/25 19:21 DC 09/05/25 21:53 5 MG Vital Signs 09/05/25 09/05/25 09/05/25 09/05/25 18:22 18:52 21:53 22:04 Temp 98.1 98.1 Pulse 89 89 Resp 14 14 14 B/P (MAP) 116/91 116/91 (99) Pulse Ox 97 97 O2 Flow Rate 0 0 Laboratory Tests Test 09/05/25 18:57 09/05/25 19:02 White Blood Count 13.5 H Red Blood Count 4.46 Hemoglobin 12.9 Hematocrit 39.3 Mean Corpuscular Volume 88.0 Mean Corpuscular Hemoglobin 29.0 Mean Corpuscular Hemoglobin Concent 32.9 L Red Cell Distribution Width 15.9 H Platelet Count 559 H Mean Platelet Volume 7.0 L Neutrophils (%) (Auto) 62.6 Lymphocytes (%) (Auto) 27.8 Monocytes (%) (Auto) 8.2 Eosinophils (%) (Auto) 0.9 Basophils (%) (Auto) 0.5 Neutrophils # (Auto) 8.5 H Lymphocytes # (Auto) 3.8 Monocytes # (Auto) 1.1 H Eosinophils # (Auto) 0.1 Basophils # (Auto) 0.1 CBC Comment Sodium Level 145 Potassium Level 3.8 Chloride Level 104 Carbon Dioxide Level 33.0 H Anion Gap 8 Blood Urea Nitrogen 28 H Creatinine 1.07 H Estimated GFR/1.73 m2 59 BUN/Creatinine Ratio 26.2 H Glucose Level 123 H Calcium Level 8.6 Albumin 3.7 Thyroid Stimulating Hormone (TSH) 3.09 Chemistry Comments Ethyl Alcohol Level < 10 SARS-CoV-2 Antigen (Rapid) Negative Medical Decision Making Additional information obtaine: old records Findings Patient presents to the emergency room on a written 5150. Labs reviewed and that has no evidence of major pathologic derangements. She has been coming cooperative. He had not feel she requires a CT scan. Patient does have what looks like the beginning of infection to her right ankle and antibiotics has been initiated. Patient has mild decrease in her renal function likely secondary to acute kidney injury. She is drinking plenty of water and I expect this to continue to improve with hydration. No other evidence of major pathologic derangements. Patient is medically cleared for mental health evaluation. Tetanus reported to be up-to-date Differential Dx:Considerations: Include: Alcohol abuse, Anxiety, Bipolar disord er, Conversion disorder, Depression, Encephaloathy, Homicidal, Panic disorder, Personality disorder, Schizophrenia, Substance abuse, Suicidal, Other Departure Disposition: 30 STILL A PATIENT Impression: Primary Impression: Mental disorder Condition: Guarded Referrals: NO PRIMARY CARE PROVIDER (PCP) Signature Scribe Signature: No scribe Attestation: The note accurately reflects work and decisions made by me.Wilfredo Doss MD 09/05/25 20:32 WILFREDO DOSS MD Sep 05, 2025 18:39
[2025-09-05 19:13] LABS: MEAN PLATELET VOLUME 7.0 FL (7.4-10.4); RED CELL DISTRIBUTION WIDTH 15.9 % (11.5-14.5)
[2025-09-05 19:42] LABS: CREATININE 1.07 MG/DL (0.40-0.90); ETHANOL < 10 MG/DL (<10); TOTAL CARBON DIOXIDE 33.0 MMOL/L (24-32); eGFR 59 ML/MIN
[2025-09-05] MEDS: bacitracin 15gm ointment TP ONE (19:55)
[2025-09-05] MEDS: amox tr/potassium clavulanate 875/125mg TAB PO SCH (20:00)
[2025-09-05] MEDS: ondansetron 4mg rapidly disintigrating tab PO ONE (20:00)
--- NOTE | 2025-09-05 20:54 | RADIOLOGY REPORT ---
CLINICAL INDICATION: LEG PAIN RIGHT TECHNIQUE: 2 views DI TIB/FIB 2 VWS COMPARISON: None FINDINGS: No acute fracture. The partially assessed knee and ankle joints are congruent. Mild distal medial soft tissue swelling. IMPRESSION: 1. No acute osseous abnormality of the right lower leg.
[2025-09-05] MEDS: diazepam inj 5 MG/ML inj. IM ONE (21:53)
[2025-09-05] MEDS: haloperidol lactate 5mg/ml inj IM ONE (21:54)
[2025-09-06] MEDS ORDERED: PALI6TAB6 PO (04:45)
[2025-09-06] MEDS ORDERED: BUPR1FIL20 SL (04:45)
[2025-09-06] MEDS: buprenorphine/naloxone 8MG-2MG SUBlingual film SL SCH (12:33)
[2025-09-06 12:35] LABS: URINE HCG NEGATIVE (NEG)
[2025-09-06 12:37] LABS: LEUKOCYTE ESTERASE ,URINE NEGATIVE (Neg); NITRITES, URINE NEGATIVE (Neg); OCCULT BLOOD,URINE NEGATIVE (Neg)
[2025-09-06 12:39] LABS: UA COLLECTION TYPE NON-SPECIFIED
[2025-09-06 12:44] LABS: MUCUS STRANDS FEW /LPF (Neg); SQUAMOUS EPITHELIAL CELL,UR FEW /LPF (FEW)
[2025-09-06 12:46] LABS: URINE AMPHETAMINE SCREEN POSITIVE (Neg); URINE BARBITUATE SCREEN NEGATIVE (Neg); URINE BENZODIAZEPINES SCREEN POSITIVE (Neg); URINE CANNABINOID SCREEN POSITIVE (Neg); URINE COCAINE SCREEN NEGATIVE (Neg); URINE METHADONE SCREEN NEGATIVE (Neg); URINE OPIATE SCREEN NEGATIVE (Neg); URINE PHENCYCLIDINE SCREEN NEGATIVE (Neg)
[2025-09-06 17:17] VITALS: BP 104/69; PULSE 71; RESP 16; TEMP 99; O2SAT 91
[2025-09-06] MEDS ORDERED: PALIPERIDONE 3 MG TAB.ER.24 PO SCH (21:00)
== END 2025-09-06 18:04 | disposition home or self-care (01) ==
LOC: ER 18:18
DX: F99 Mental disorder, not otherwise specified (principal); F41.9 Anxiety disorder, unspecified; F15.90 Other stimulant use, unspecified, uncomplicated; F11.90 Opioid use, unspecified, uncomplicated; Z87.440 Personal history of urinary (tract) infections; Z98.890 Other specified postprocedural states; Z59.00 Homelessness unspecified; Z79.899 Other long term (current) drug therapy; Z88.8 Allergy status to other drugs, medicaments and biological substances; Z20.822 Contact with and (suspected) exposure to COVID-19
CPT/HCPCS: 36415; 73590; 80048; 80305; 80320; 81001; 81025; 84443; 85025; 87811; 96372; 99285; J1200; J1630; J3360